=== PATIENT | female | born 1965 | race Caucasian/White ===

== ENCOUNTER 2021-12-03 13:05 | Outpatient (RCR) | payer BC, SELFPAY | END 2021-12-27 23:59 | disposition home or self-care (01) | LOC: CCIC 13:05 | PROVIDERS: PCP Physician Assistant; Visit Provider Nurse Practitioner Family | DX: D05.92 Unspecified type of carcinoma in situ of left breast (principal); Z17.0 Estrogen receptor positive status [ER+]; Z79.810 Long term (current) use of selective estrogen receptor modulators (SERMs) | CPT/HCPCS: 99212; 99214 ==

== ENCOUNTER 2022-06-03 14:52 | Outpatient (RCR) | payer BC, SELFPAY ==
--- NOTE | 2022-06-17 13:33 | ONC.NURNOTE ---
Notified pt of LUE US results showing lipoma; pt has no further questions or concerns.
== END 2022-08-31 23:59 | disposition home or self-care (01) ==
LOC: CCIC 14:52
PROVIDERS: PCP Physician Assistant; Visit Provider Physician Assistant
DX: D05.92 Unspecified type of carcinoma in situ of left breast (principal); Z17.0 Estrogen receptor positive status [ER+]; Z79.810 Long term (current) use of selective estrogen receptor modulators (SERMs); R22.32 Localized swelling, mass and lump, left upper limb; R23.2 Flushing; T50.905A Adverse effect of unspecified drugs, medicaments and biological substances, initial encounter
CPT/HCPCS: 99212; 99213; 99214

== ENCOUNTER 2022-06-16 16:00 | Outpatient (CLI) | payer BC, SELFPAY ==
--- NOTE | 2022-06-16 16:00 | CRLHL7_ITS ---
For Patients: As a result of the Century Cures Act, medical imaging exams and procedure reports are released immediately into your electronic medical record. You may view this report before your referring provider. If you have questions, please contact your health care provider. Indication: PALPABLE LUMP LT POSTERIOR ARM Technique: Grayscale and color Doppler ultrasound of the left posterior medial upper extremity soft tissues performed. Comparison: None Findings: Circumscribed isoechoic solid mass without abnormal vascularity is present within the subcutaneous fat superficial to the deltoid muscle. This measures 4.4 x 1.1 x 4.6 cm. Impression: 4.6 cm subcutaneous lipoma. Dictated by Derek English MD @ 06/17/2022 9:21:30 AM (Electronically Signed)
== END 2022-06-16 16:01 | disposition home or self-care (01) ==
LOC: US 16:01
PROVIDERS: PCP Physician Assistant; Visit Provider Physician Assistant
DX: R22.32 Localized swelling, mass and lump, left upper limb (principal); D17.22 Benign lipomatous neoplasm of skin and subcutaneous tissue of left arm
CPT/HCPCS: 76882

== ENCOUNTER 2023-02-10 14:53 | Outpatient (RCR) | payer BC, SELFPAY | END 2023-08-09 23:59 | disposition home or self-care (01) | LOC: CCIC 14:53 | PROVIDERS: PCP Physician Assistant; Visit Provider Internal Medicine Hematology & Oncology | DX: D05.92 Unspecified type of carcinoma in situ of left breast (principal); Z17.0 Estrogen receptor positive status [ER+]; R22.32 Localized swelling, mass and lump, left upper limb; R23.2 Flushing; T50.905A Adverse effect of unspecified drugs, medicaments and biological substances, initial encounter | CPT/HCPCS: 99212; 99213; 99214 ==

== ENCOUNTER 2023-08-25 14:47 | Outpatient (RCR) | payer OTHER, SELFPAY | END 2024-02-21 23:59 | disposition home or self-care (01) | LOC: CCIC 14:47 | PROVIDERS: PCP Physician Assistant; Visit Provider Internal Medicine Hematology & Oncology | DX: D05.92 Unspecified type of carcinoma in situ of left breast (principal); Z17.0 Estrogen receptor positive status [ER+]; R22.32 Localized swelling, mass and lump, left upper limb; R23.2 Flushing | CPT/HCPCS: 99212; 99213; G0463 ==